=== PATIENT | male | born 1985 | race Caucasian/White ===

== ENCOUNTER 2016-12-22 14:00 | Emergency (ER) | payer BC, OTHER ==
[2016-12-22 14:56] VITALS: RESP 17; TEMP 96.6
[2016-12-22 15:37] LABS: HIV ANTIBODY NEGATIVE (N); HIV-1 P24 ANTIGEN NEGATIVE (N)
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
== END 2016-12-22 15:00 | disposition home or self-care (01) ==
LOC: ER 14:00 → EDSTATUS 14:50 → ER 15:00 → EDSTATUS 15:49
DX: Z20.89 Contact with and (suspected) exposure to other communicable diseases (principal); Y99.0 Civilian activity done for income or pay
CPT/HCPCS: 36415; 99282